=== PATIENT | female | born 1975 | race Caucasian/White ===

== ENCOUNTER 2020-08-20 14:04 | Emergency (ER) | payer BC ==
[2020-08-20] MEDS ORDERED: traMADol 50 MG Tab PO ONE (14:32)
[2020-08-20] MEDS ORDERED: Ketorolac 60 MG/2 ML SDV IM ONE (14:32)
--- NOTE | 2020-08-20 14:33 | EDM.PDOC ---
ED HPI GENERAL MEDICAL PROBLEM - General Chief Complaint: General Stated Complaint: dental pain Time Seen by Provider: 08/20/20 14:08 Source of Information: Reports: Patient History Limitations: Reports: No Limitations - History of Present Illness INITIAL COMMENTS - FREE TEXT/NARRATIVE: Left lower tooth pain in back molar. Feels mildly swollen. No drainage. No fevers. Problem started several weeks ago. Improved on PCN (started on 18) and had no pain for 3-4 days. Finished that antibiotic earlier this past week. Pain has now returned the last few days and today is worse. Has appointment with dentist next week. Says that middle fell out of the painful molar/tooth cracked prior to pain starting. OTC pain meds not helping. 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 Left Face/Facial Pain Score (Numeric/FACES): 8 - Related Data Allergies Allergy/AdvReac Type Severity Reaction Status Date / Time lisinopril Allergy family hx Verified 08/20/20 14:07 Sulfa (Sulfonamide Allergy Rash Verified 08/20/20 14:07 Antibiotics) Home Meds: Home Meds Amoxicillin/Potassium Clav [Amox-Clav 875-125 mg Tablet] 1 tab PO BID 08/20/20 [History] Hydrocodone/Acetaminophen [Hydrocodone-Acetamin 5-325 mg] 1 tab PO Q4HR 08/20/20 [History] Losartan [Cozaar] 1 tab PO DAILY 08/20/20 [History] Metoprolol Tartrate [Lopressor] 1 tab PO DAILY 08/20/20 [History] Sertraline HCl [Zoloft] 1 tab PO DAILY 08/20/20 [History] atorvaSTATin [Lipitor] 1 tab PO DAILY 08/20/20 [History] estradioL [Climara] 1 patch TOP WEEKLY 08/20/20 [History] hydroCHLOROthiazide [Hydrochlorothiazide] 1 tab PO DAILY 08/20/20 [History] Past Medical History Cardiovascular History: Reports: High Cholesterol, Hypertension Psychiatric History: Reports: Other (See Below) (depression/anxiety) Endocrine/Metabolic History: Reports: Obesity/BMI 30+ ED ROS GENERAL - Review of Systems Review Of Systems: Comprehensive ROS is negative, except as noted in HPI. ED EXAM, GENERAL - Physical Exam Exam: See Below Exam Limited By: No Limitations General Appearance: Alert, Mild Distress Eye Exam: Bilateral Eye: EOMI, PERRL Ears: Hearing Grossly Normal Nose: No: Nasal Deformity, Nasal Swelling, Nasal Drainage Throat/Mouth: Normal Lips, Normal Voice, No Airway Compromise, Other (most posterior left lower molar has no obvious decay. Is tender. No obvious swelling of surrounding gum tissue/no drainage. ) Head: Atraumatic, Normocephalic, Facial Tenderness (over lower back molar area along jawline). No: Facial Swelling Neck: Normal Inspection, Supple, Non-Tender, Full Range of Motion. No: Lymphadenopathy (L), Lymphadenopathy (R) Respiratory/Chest: No Respiratory Distress Neurological: Alert, Oriented, Normal Cognition, Normal Gait Psychiatric: Normal Affect, Normal Mood Skin Exam: Warm, Dry, Intact, Normal Color Course - Vital Signs Last Recorded V/S: Last Vital Signs Temp 36.4 C 08/20/20 14:17 Pulse 80 08/20/20 14:17 Resp 18 08/20/20 14:17 BP 147/87 H 08/20/20 14:17 Pulse Ox 100 08/20/20 14:17 - Orders/Labs/Meds Meds: Medications Discontinued Medications Generic Name Dose Route Start Last Admin Trade Name Candida PRN Reason Stop Dose Admin Ketorolac Tromethamine 60 mg 08/20/20 14:32 Ketorolac 60 Mg/2 Ml Sdv IM 08/20/20 14:33 ONETIME ONE Tramadol HCl 100 mg 08/20/20 14:32 Tramadol 50 Mg Tab PO 08/20/20 14:33 ONETIME ONE - Re-Assessments/Exams Free Text/Narrative Re-Assessment/Exam: 08/20/20 14:41 Pain may be due to nerve irritation/exposure and not an infection. Since patient initially improved while on Augmentin will now cover with Clindamycin. Rx for Tramadol given to patient for pain. They will drive to [place] to get this from an open pharmacy today. Precautions reviewed. 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 Follow up with your dentist next week! Return to ER if you have worsening problems/symptoms. Sepsis Event Note (ED) - Evaluation Sepsis Screening Result: No Definite Risk - Focused Exam Vital Signs: Vital Signs Temp Pulse Resp BP Pulse Ox 08/20/20 14:17 36.4 C 80 18 147/87 H 100
== END 2020-08-20 14:50 | disposition home or self-care (01) ==
LOC: LL.ED 14:04
DX: K08.89 Other specified disorders of teeth and supporting structures (principal); E78.00 Pure hypercholesterolemia, unspecified; I10 Essential (primary) hypertension; E66.9 Obesity, unspecified; Z68.38 Body mass index [BMI] 38.0-38.9, adult; Z79.899 Other long term (current) drug therapy; Z88.2 Allergy status to sulfonamides
CPT/HCPCS: 96372; 99282; A9270; J1885; 99283